=== PATIENT | female | born 1985 | race Caucasian/White ===

== ENCOUNTER 2021-08-19 10:52 | Emergency (ER) | payer OTHER ==
[2021-08-19] MEDS ORDERED: Sodium Chloride 0.9% 10 ML Syringe FLUSH PRN (11:54)
[2021-08-19] MEDS ORDERED: diphenhydrAMINE 50 MG/ML SDV IVPUSH ONE (12:01)
[2021-08-19] MEDS ORDERED: Ketorolac 30 MG/ML SDV IVPUSH ONE (12:02)
[2021-08-19] MEDS ORDERED: Ondansetron 4 MG/2 ML SDV IVPUSH ONE (12:02)
[2021-08-19] MEDS ORDERED: Sodium Chloride 0.9% 1,000 ML IV SCH (12:15)
[2021-08-19] MEDS ORDERED: HYDROmorphone 0.5 MG/0.5 ML Syringe IVPUSH ONE ×2 (14:40→15:27)
== END 2021-08-19 15:59 | disposition home or self-care (01) ==
LOC: JP.ED 10:52
DX: G43.909 Migraine, unspecified, not intractable, without status migrainosus (principal); M06.9 Rheumatoid arthritis, unspecified; Z88.0 Allergy status to penicillin; Z88.8 Allergy status to other drugs, medicaments and biological substances
CPT/HCPCS: 96374; 96375; 96376; 99283; 99284; J1170; J1200; J1885; J2405; J7030